=== PATIENT | female | born 1955 | race Caucasian/White ===

== ENCOUNTER 2022-07-13 06:51 | Outpatient (OUT) | payer MEDICARE, SELFPAY ==
[2022-07-13 07:23] LABS: Glucose 110 mg/dL (74-106)
[2022-07-13 07:27] LABS: Estimated Average Glucose 97 mg/dL
== END 2022-07-13 06:52 ==
LOC: LAB 06:55
PROVIDERS: PCP Nurse Practitioner; Visit Provider Nurse Practitioner
DX: R73.9 Hyperglycemia, unspecified (principal)
CPT/HCPCS: 36415; 82947; 83036

== ENCOUNTER 2023-07-22 06:38 | Outpatient (OUT) | payer MEDICARE, SELFPAY ==
[2023-07-22 07:12] LABS: Basophils Absolute Auto 0.1 10^3/uL (0.0-0.1); Basophils Percent Auto 0.6 % (0.2-2.0); Eosinophils Absolute Auto 0.1 10^3/uL (0.0-0.7); Eosinophils Percent Auto 1.8 % (0.9-7.0); Hematocrit 36.8 % (36.0-48.0); Hemoglobin 12.3 g/dL (12.0-16.0); Immature Granulocytes Abs Auto 0.02 10^3/uL (0.00-0.03); Immature Granulocytes Pct Auto 0.3 % (0.0-0.5); Mean Corpuscular HGB Conc 33.4 g/dL (29.9-35.2); Mean Corpuscular Hemoglobin 30.8 pg (26.7-34.0); Mean Corpuscular Volume 92.2 fL (81.0-99.0); Mean Platelet Volume 9.9 fL (9.5-13.5); Monocytes Absolute Auto 0.8 10^3/uL (0.3-0.8); Monocytes Percent Auto 9.6 % (1.7-12.0); Neutrophils Absolute Auto 4.9 10^3/uL (1.4-6.5); Neutrophils Percent Auto 62.7 % (43.0-75.0); Platelet Count 228 10^3/uL (150-450); Red Blood Count 3.99 10^6/uL (4.20-5.40); White Blood Count 7.8 10^3/uL (4.0-11.0)
[2023-07-22 08:20] LABS: Alanine Aminotransferase 27 U/L (14-59); Albumin Globulin Ratio 0.9; Albumin Level 3.3 g/dL (3.4-5.0); Alkaline Phosphatase 67 U/L (46-116); Anion Gap 12.2; Aspartate Amino Transferase 19 U/L (15-37); Bilirubin Total 0.7 mg/dL (0.2-1.0); Calcium 8.7 mg/dL (8.5-10.1); Carbon Dioxide 26.6 mmol/L (21.0-32.0); Chloride 104 mmol/L (98-107); Chol HDL Ratio 2.2; Cholesterol 177 mg/dL (<=200); Estimated GFR (African America >60 (>=60); Estimated GFR (Non-African Ame >60 (>=60); Globulin 3.5 g/dL; Glucose 101 mg/dL (74-106); HDL Cholesterol 79 mg/dL (40-60); Potassium 3.8 mmol/L (3.5-5.1); Sodium 139 mmol/L (136-145); Total Protein 6.8 g/dL (6.4-8.2); Triglycerides 59 mg/dL (<=150); VLDL CHOLESTEROL 11.8 mg/dL
== END 2023-07-22 06:39 | disposition home or self-care (01) ==
LOC: LAB 06:39
PROVIDERS: PCP Nurse Practitioner; Visit Provider Nurse Practitioner
DX: E78.2 Mixed hyperlipidemia (principal); M81.0 Age-related osteoporosis without current pathological fracture; K59.09 Other constipation
CPT/HCPCS: 36415; 80053; 80061; 82306; 85025

== ENCOUNTER 2024-07-31 06:35 | Outpatient (OUT) | payer MEDICARE, SELFPAY ==
--- OUTSIDE RECORDS SUMMARY | 2024-07-31 06:38 | XMS_ITS | CCD ---
Author Organization [facility] Inform ion Partnership [facility] Care Team Providers [facility] Specialist Name Role Phone AICHHOLZ, SKI TOPPER FELICIA Primary Care Unavailable DR YANNICK CARLOS V Consulting Unavailable AICHHOLZ, SKI TOPPER FELICIA Attending Unavailable AICHHOLZ, SKI TOPPER FELICIA Admitting Unavailable AICHHOLZ, SKI TOPPER FELICIA Consulting Unavailable AICHHOLZ, SKI TOPPER FELICIA Primary Care Unavailable AICHHOLZ, SKI TOPPER FELICIA Consulting Unavailable AICHHOLZ, SKI TOPPER FELICIA Attending Unavailable AICHHOLZ, SKI TOPPER FELICIA Admitting Unavailable AICHHOLZ, SKI TOPPER FELICIA Primary Care Unavailable AICHHOLZ, SKI TOPPER FELICIA Consulting Unavailable AICHHOLZ, SKI TOPPER FELICIA Attending Unavailable AICHHOLZ, SKI TOPPER FELICIA Admitting Unavailable Louise Simmons Unavailable AICHHOLZ, FELICIA Referring Unavailable Aichholz SUBSTANCE ABUSE RN, Felicia Unavailable Aichholz SUBSTANCE ABUSE RN, Felicia Unavailable Isaiah Patel MD Primary Care Provider Aichholz SUBSTANCE ABUSE RN, Felicia Unavailable Aichholz SUBSTANCE ABUSE RN, Felicia Unavailable AICHHOLZ, FELICIA Referring Unavailable AICHHOLZ, FELICIA Attending Unavailable AICHHOLZ, FELICIA Attending Unavailable Medications Current Medications Medication Drug Class(es) Dates Sig (Normalized) Sig (Original) alendronic acid 10 mg oral tablet (10 sources) Bisphosphonate Start: 07-07-2023 End: 09-24-2024 take 1 tablet by mouth once daily alendronate (Fosamax) 10 MG tablet Indications: Other osteoporosis without current pathological fracture Take 1 tablet (10 mg) by mouth Daily Take with a full glass of water, stay upright for 1 hour after taking 90 tablet 1 06/26/2024 09/24/2024 Active Alendronate Sodi um 10 MG Oral for 30 Days Active atorvastatin 20 mg oral tablet (10 sources) HMG-CoA Reductase Inhibitor Start: 07-07-2023 End: 09-24-2024 take 1 tablet by mouth at bedtime atorvastatin (Lipitor) 20 MG tablet Indications: Mixed hyperlipidemia (CMS/HCC) Take 1 tablet (20 mg) by mouth at bedtime 90 tablet 1 06/26/2024 09/24/2024 Active Atorvastatin Kendall cium 20 MG Oral for 90 Days Active Calcium (1 source) Phosphate Binder, Calcium Calcium + D3 Active cholecalciferol 0.025 mg oral capsule (6 sources) Vitamin D take 1 capsule by mouth once daily cholecalciferol (Vitamin D-3) 25 MCG (1000 UT) capsule Take 1,000 Units by mouth 1 (one) time each day at the same time Active Fish Oils (7 sources) omega-3 (Fish Oi l) 1200 MG capsule 1 capsule 1 (one) time each day at the same time Active Fish Oil Active Completed/Discontinued Medications Medication Drug Class(es) Dates Sig (Normalized) Sig (Original) meclizine hydrochloride 25 mg oral tablet (2 sources) Antiemetic Start: 06-26-2022 End: 12-20-2023 take 1 tablet by mouth three times daily as needed meclizine (Antivert) 25 MG tablet Take 25 mg by mouth 3 (three) times a day as needed 06/26/2022 12/20/2023 Discontinued Problems Active Problems Problem Classification Problem Date Documented Da te Episodic/Chronic Allergic reactions (6 sources) Atopic dermatitis; Translations: [Intrinsic (allergic) eczema] Onset: 06-21-2023 06-21-2023 Chronic Complications of surgical procedures or medical care (1 source) Unspecified adverse effect of drug or medicament, initial encounter Episodic Conditions associated with dizziness or vertigo (10 sources) Vertigo; Translations: [Dizziness and giddiness] Onset: 01-19-2023 12-20-2023 Episodic Disorders of lipid metabolism (20 sources) Hyperlipidemia, unspecified; Translations: [Mixed hyperlipidemia] Onset: 12-14-2021 Resolved: 12-20-2023 Chronic Osteoporosis (20 sources) Age-related osteoporosis without current pathological fracture; Translations: [Senile osteoporosis] Onset: 12-19-2021 Resolved: 12-20-2023 12-20-2023 Chronic Other gastrointestinal disorders (1 source) Other constipation; Translations: [OTHER CONSTIPATION] Onset: 12-19-2021 Episodic Other gastrointestinal disorders (8 sources) Chronic constipation; Translations: [Other constipation] Onset: 06-21-2023 06-21-2023 Episodic Unclassified (3 sources) CONTACT W/AND (SUSP) EXPOS COVID-19; Translations: [CONTACT W/AND (SUSP) EXPOS COVID-19] Onset: 01-09-2022 Past or Other Problems Problem Classification Problem Date Documented Da te Episodic/Chronic Diseases of mouth; excluding dental (6 sources) Bleeding from mouth; Translations: [Other lesions of oral mucosa] Onset: 02-14-2023 02-14-2023 Episodic Immunizations and screening for infectious disease (8 sources) Needs influenza immunization; Translations: [Encounter for immunization] Onset: 12-20-2023 12-20-2023 Episodic Mood disorders (6 sources) Mood disorders Onset: 06-21-2023 Resolved: 06-26-2024 06-21-2023 Other screening for suspected conditions (not mental disorders or infectious disease) (8 sources) Patient encounter status; Translations: [Encounter for screening mammogram for malignant neoplasm of breast] Onset: 06-21-2023 12-20-2023 Episodic Unclassified (1 source) CONTACT W/AND (SUSP) EXPOS COVID-19; Translations: [CONTACT W/AND (SUSP) EXPOS COVID-19] Onset: 01-06-2022 Unclassified (1 source) Acute cough R05.1 Results Test Name Value Interpretation Reference Range Facil ity BI MAMMOGRAM SCREENING TOMOS YNTHESIS BILATERALon 03-27-2024 BI MAMMOGRAM SCREENING TOMOSYNTHESIS BILATERAL This is a summary report. The complete report is available in the patient's medical record. If you cannot access the medical record, please contact the sending organization for a detailed fax or copy. Examination: BI MAMMOGRAM SCREENING TOMOSYNTHESIS BILATERAL Clinical History: breast cancer screening Technique: Screening digital mammography study of both breasts was performed with 2-D and 3-D tomosynthesis imaging. Study was compared to the prior exam dated 03/01/2023. Findings: There is no evidence of interval dominant spiculated mass, grouped microcalcifications, or skin thickening which would be suggestive of malignancy. Partially visualized axillary lymph nodes bilaterally which appear grossly unremarkable. IMPRESSION: Impression: No specific evidence of malignancy seen in either breast. BIRADS 2 - Benign Findings DENSITY: The breasts are heterogeneously dense, which may obscure small masses. FOLLOW-UP: Routine Screening Mammogram ELECTRONICALLY SIGNED BY: Henrik Hopkins M.D. Normal Not Available DEXA BONE DENSITYon 03-27-19 DEXA BONE DENSITY Examination: DEXA BONE DENSITY Clinical History: osteoporosis Technique: Bone density study was performed. T score values for the lumbar spine, right femoral neck and left femoral neck were obtained. Comparison: None Findings: For the lumbar spine from L1-L4 is -0.3. Value for the right femoral neck is -2.7. Value for the left femoral neck is -2.7. Findings are compatible with osteoporosis with high increased fracture risk. IMPRESSION: Impression: Findings compatible with osteoporosis with high increased fracture risk. ELECTRONICALLY SIGNED BY: Henrik Hopkins M.D. Normal Not Available BI MAMMOGRAM SCREENING TOMOS YNTHESIS BILATERALon 03-01-2023 BI MAMMOGRAM SCREENING TOMOSYNTHESIS BILATERAL This is a summary report. The complete report is available in the patient's medical record. If you cannot access the medical record, please contact the sending organization for a detailed fax or copy. EXAMINATION: BI MAMMOGRAM SCREENING TOMOSYNTHESIS BILATERAL CLINICAL HISTORY:Z12.31 COMPARISON: There are no previous mammograms available for comparison. RESULT: Digital mammography and 3D tomosynthesis of bilateral breasts was performed. Density: Scattered fibroglandular density [2] There is no suspicious mass, asymmetry, architectural distortion, or calcification. IMPRESSION: BIRADS 1 - Negative Follow-up: Routine Screening Mamm Board Certified Radiologists. Accredited by the ACR and FDA. MAMMOGRAPHY IS VERY IMPORTANT TO YOUR HEALTH. THE [place] [employer] SOCIETY GUIDELINES RECOMMEND THAT WOMEN 40 YEARS OF AGE AND OLDER SHOULD HAVE A MAMMOGRAM EVERY YEAR. A REMINDER LETTER WILL BE SENT AT THE APPROPRIATE TIME. THIS FACILITY UTILIZES A REMINDER SYSTEM TO ENSURE ALL PATIENTS RECEIVE REMINDER NOTIFICATIONS AT THE APPROPRIATE TIME BASED ON THE RECOMMENDATIONS OF THIS EXAM. THIS INCLUDES REMINDERS FOR ROUTINE SCREENING MAMMOGRAMS, DIAGNOSTIC MAMMOGRAMS IN WHICH THE PATIENT IS ASKED TO RETURN FOR ADDITIONAL VIEWS, OR OTHER BREAST IMAGING INTERVENTIONS WHEN APPROPRIATE. THE PATIENT WILL BE PLACED IN THE APPROPRIATE REMINDER SYSTEM INCLUDING A REMINDER AT THE APPROPRIATE TIME FOR ANY PENDING ADDITIONAL VIEWS. TRANSCRIBED BY: ELECTRONICALLY SIGNED BY: Prabhu Lentz MD Normal Not Available MG MAMM SCREEN 3D MARIZOL CADon 02-08-2022 MG MAMM SCREEN 3D MARIZOL CAD Patient: SHANNON GOMEZ Exam Date: 02/08/2022 : 1955 Gender:F Ordering : [facility] GAINES [facility] Admission #: [id number] Family : Order #: [id number] CLICK HERE TO VIEW EXAM RADIOLOGY REPORT PROCEDURE: MAMMOGRAM SCREENING 3D BILATERAL CAD COMPARISON: MG MAMM SCREEN MARIZOL W CAD, 07/25/2019. MG MAMM SCREEN 3D MARIZOL CAD, 01/27/2021. INDICATIONS: Screening mammography Calculator Name NCI Breast Cancer Risk Assessment Tool 5 Year Breast Cancer Risk 3.00% Lifetime Breast Cancer Risk 10.60% Personal Breast Cancer No Personal Ovarian Cancer No Treatments None Family Cancers Aunt-maternal with breast cancer at age 50; Mother with colon cancer at age 77; Father with prostate cancer at age 60; Brother with colon cancer at age 54; Sister with breast cancer at age 65. LOCATION: [facility] BREAST COMPOSITION: Heterogeneously dense,which may obscure small masses. FINDINGS: DIAGNOSTIC CATEGORY 1--NEGATIVE. RIGHT BREAST: No significant suspicious finding. LEFT BREAST: No significant suspicious finding. RECOMMENDATIONS: ROUTINE MAMMOGRAM AND CLINICAL EVALUATION IN 12 MONTHS. PLEASE NOTE: A NORMAL MAMMOGRAM DOES NOT EXCLUDE THE POSSIBILITY OF BREAST CANCER. A CLINICALLY SUSPICIOUS PALPABLE LUMP SHOULD BE BIOPSIED. Dictated by: Yannick Carlos MD on 02/08/2022 at 10:19 Approved by: Yannick Carlos MD on 02/08/2022 at 10:21 Normal [facility] XR DEXA BONE DENSITYon 02-08 XR DEXA BONE DENSITY EXAMINATION: XR DEXA BONE DENSITY, 02/08/2022 7:46 AM EST HISTORY: Senile osteoporosis COMPARISON: 2017 TECHNIQUE: Dual-energy X-ray absorptiometry (DEXA) bone density study performed for the axial skeleton. FINDINGS: Bone mineral density of the lumbar spine L1-L4 measures 1.182 g/sq cm. T score 0.0. WHO classification: Normal. Lowest bone mineral density left femoral neck measures 0.675 g/sq cm. T score -2.6. WHO classification: Osteoporosis IMPRESSION: Osteoporosis. High fracture risk Electronically authenticated by: YANNICK CARLOS Date: 2022-02-08 16:15 Normal [facility] Covid-19 PCR (CVDTB)on 12-10 SARS-CoV-2 (COVID-19) RNA SALBADOR+probe Ql (Unsp spec) Not detected Normal NOT DETECTED [facility] Comment on above: Result Comment: This test is not yet approved or cleared by the [place] FDA. When there are no FDA-approved or cleared tests available, and other criteria are met, FDA can make tests available under an emergency access mechanism called an Emergency Use Authorization (EUA). The EUA for this test is supported by the [place] of Health and Human Service's (HHS's) declaration that circumstances exist to justify the emergency use of in vitro diagnostics for the detection and/or diagnosis of the virus that causes COVID-19. This EUA will remain in effect (meaning this test can be used) for the duration of the COVID-19 declaration justifying emergency of IVDs, unless it is terminated or revoked by FDA (after which the test may no longer be used). When diagnostic testing is negative, the possibility of a false negative should be considered in the context of a patient's recent exposures and the presence of clinical signs and symptoms consistent with SARS-CoV-2. Performed By: #### C VDTBH #### [facility] [address] [place] [address] Dr. Johnie Sweet CBC AUTO DIFFon 12-14-2021 BASO # 0.0 103/ul Normal 0.0-0.1 [facility] Comment on above: Performed By: #### C BC #### [facility] [address] [place] [address] Dr. Johnie Sweet Basophils/100 WBC (Bld) 0.4 % Normal 0.2-2.0 [facility] Comment on above: Performed By: #### C BC #### [facility] [address] [place] [address] Dr. Johnie Sweet EO # 0.1 103/ul Normal 0.0-0.7 [facility] Comment on above: Performed By: #### C BC #### [facility] [address] [place] [address] Dr. Johnie Sweet Eosinophils/100 WBC (Bld) 1.2 % Normal 0.9-7.0 [facility] Comment on above: Performed By: #### C BC #### [facility] [address] [place] [address] Dr. Johnie Sweet Erythrocyte distribution width (RBC) [Ratio] 13.2 % Normal 11.0-15.0 [facility] Comment on above: Performed By: #### C BC #### [facility] [address] [place] [address] Dr. Johnie Sweet Hematocrit (Bld) [Volume fraction] 38.9 % Normal 36.0-48.0 [facility] Comment on above: Performed By: #### C BC #### [facility] [address] [place] [address] Dr. Johnie Sweet Hemoglobin (Bld) [Mass/Vol] 12.5 g/dL Normal 12.0-16.0 [facility] Comment on above: Performed By: #### C BC #### [facility] [address] [place] [address] Dr. Johnie Sweet IG # 0.03 10e3/ul Normal 0.00-0.03 [facility] Comment on above: Performed By: #### C BC #### [facility] [address] [place] [address] Dr. Johnie Sweet IG % 0.3 % Normal 0.0-0.5 [facility] Comment on above: Performed By: #### C BC #### [facility] [address] [place] [address] Dr. Johnie Sweet LYMPH # 1.2 103/ul Normal 1.2-3.8 [facility] Comment on above: Performed By: #### C BC #### [facility] [address] [place] [address] Dr. Johnie Sweet Lymphocytes/100 WBC (Bld) 12.5 % Critically low 20.5-60.0 [facility] Comment on above: Performed By: #### C BC #### [facility] [address] [place] [address] Dr. Johine Sweet MANUAL DIFF REQ NO Normal [facility] Comment on above: Performed By: #### C BC #### [facility] [address] [place] [address] Dr. Johnie Sweet MCH (RBC) [Entitic mass] 30.4 pg Normal 26.7-34.0 [facility] Comment on above: Performed By: #### C BC #### [facility] [address] [place] [address] Dr. Johnie Sweet MCHC (RBC) [Mass/Vol] 32.1 g/dL Normal 29.9-35.2 [facility] Comment on above: Performed By: #### C BC #### [facility] [address] [place] [address] Dr. Johnie Sweet MCV (RBC) [Entitic vol] 94.6 fL Normal 81.0-99.0 [facility] Comment on above: Performed By: #### C BC #### [facility] [address] [place] [address] Dr. Johnie Sweet MONO # 0.7 103/ul Normal 0.3-0.8 [facility] Comment on above: Performed By: #### C BC #### [facility] [address] [place] [address] Dr. Johnie Sweet Monocytes/100 WBC (Bld) 6.9 % Normal 1.7-12.0 [facility] Comment on above: Performed By: #### C BC #### [facility] [address] [place] [address] Dr. Johnie Sweet NEUT # 7.4 103/ul Critically high 1.4-6.5 [facility] Comment on above: Performed By: #### C BC #### [facility] [address] [place] [address] Dr. Johnie Sweet Neutrophils/100 WBC (Bld) 78.7 % Critically high 43.0-75.0 [facility] Comment on above: Performed By: #### C BC #### [facility] [address] [place] [address] Dr. Johnie Sweet Platelet mean volume (Bld) [Entitic vol] 10.8 fL Normal 9.5-13.5 [facility] Comment on above: Performed By: #### C BC #### [facility] [address] [address] [address] Johnie Sweet PLT 206 103/ul Normal 150-450 [facility] Comment on above: Performed By: #### C BC #### [facility] [address] [address] [address] Johnie Sweet RBC 4.11 106/ul Critically low 4.20-5.40 [facility] Comment on above: Performed By: #### C BC #### [facility] [address] [place] [address] Dr. Johnie Sweet WBC 9.4 103/ul Normal 4.0-11.0 [facility] Comment on above: Performed By: #### C BC #### [facility] [address] [place] [address] Dr. Johnie Sweet LIPID PROFILEon 12-14-2021 CHOL-HDL RATIO NORM SEE BELOW Normal [facility] Comment on above: Result Comment: 3.3 - 4.4 LOW RISK 4.4 - 7.1 AVERAGE RISK 7.1 - 11.0 MODERATE RISK >11.0 HIGH RISK Performed By: #### C MP, LIPID #### [facility] [address] [place] [address] Dr. Johnie Sweet Cholesterol [Mass/Vol] 185 mg/dL Normal <=200 [facility] Comment on above: Performed By: #### C MP, LIPID #### [facility] [address] [place] [address] Dr. Johnie Sweet Cholesterol in HDL [Mass/Vol] 81 mg/dL Critically high 40-60 [facility] Comment on above: Performed By: #### C MP, LIPID #### [facility] [address] [place] [address] Dr. Johnie Sweet Cholesterol in LDL [Mass/Vol] 93.4 mg/dL Normal [facility] Comment on above: Performed By: #### C MP, LIPID #### [facility] [address] [address] [address] Johnie Sweet Cholesterol.total/C holesterol in HDL [Mass ratio] 2.3 {ratio} Normal [facility] Comment on above: Performed By: #### C MP, LIPID #### [facility] [address] [address] [address] Johnie Sweet HDL NORMAL > or = 60 mg/dl - LO W CARDIOVASCULAR RISK <40 mg/dl - HIGH CARDIOVASCULAR RISK Normal [facility] Comment on above: Performed By: #### C MP, LIPID #### [facility] [address] [address] [address] Johnie Sweet LDL CALC NORMAL SEE BELOW Normal [facility] Comment on above: Result Comment: <100 mg/dl OPTIMAL 100 - 129 mg/dl NEAR OR ABOVE OPTIMAL 130 - 159 mg/dl BORDERLINE HIGH 160 - 189 mg/dl HIGH >190 mg/dl VERY HIGH Performed By: #### C MP, LIPID #### [facility] [address] [address] [address] Johnie Sweet Triglyceride [Mass/Vol] 53 mg/dL Normal <=150 [facility] Comment on above: Performed By: #### C MP, LIPID #### [facility] [address] [place] [address] Dr. Johnie Sweet VLDL CALC 10.6 mg/dL Normal [facility] Comment on above: Performed By: #### C MP, LIPID #### [facility] [address] [place] [address] Dr. Johnie Sweet PROF 14(COMP METB)on 022 Albumin [Mass/Vol] 3.6 g/dL Normal 3.4-5.0 [facility] Comment on above: Performed By: #### C MP, LIPID #### [facility] [address] [place] [address] Dr. Johnie Sweet Albumin/Globulin [Mass ratio] 1.0 {ratio} Normal [facility] Comment on above: Performed By: #### C MP, LIPID #### [facility] [address] [place] [address] Dr. Johnie Sweet ALP [Catalytic activity/Vol] 73 U/L Normal 46-116 [facility] Comment on above: Performed By: #### C MP, LIPID #### [facility] [address] [place] [address] Dr. Johnie Sweet ALT [Catalytic activity/Vol] 17 U/L Normal 14-59 [facility] Comment on above: Performed By: #### C MP, LIPID #### [facility] [address] [place] [address] Dr. Johnie Sweet Anion gap [Moles/Vol] 6.0 mmol/L Normal [facility] Comment on above: Performed By: #### C MP, LIPID #### [facility] [address] [place] [address] Dr. Johnie Sweet AST [Catalytic activity/Vol] 18 U/L Normal 15-37 [facility] Comment on above: Performed By: #### C MP, LIPID #### [facility] [address] [place] [address] Dr. Johnie Sweet Bilirubin [Mass/Vol] 0.6 mg/dL Normal 0.2-1.0 [facility] Comment on above: Performed By: #### C MP, LIPID #### [facility] [address] [place] [address] Dr. Johnie Sweet Calcium [Mass/Vol] 8.6 mg/dL Normal 8.5-10.1 [facility] Comment on above: Performed By: #### C MP, LIPID #### [facility] [address] [place] [address] Dr. Johnie Sweet Chloride [Moles/Vol] 104 mmol/L Normal 98-107 [facility] Comment on above: Performed By: #### C MP, LIPID #### [facility] [address] [place] [address] Dr. Johnie Sweet CO2 [Moles/Vol] 29.7 mmol/L Normal 21.0-32.0 [facility] Comment on above: Performed By: #### C MP, LIPID #### [facility] [address] [place] [address] Dr. Johnie Sweet Creatinine [Mass/Vol] 0.69 mg/dL Normal 0.55-1.02 [facility] Comment on above: Performed By: #### C MP, LIPID #### [facility] [address] [address] [address] Johnie Sweet EGFR-AF DJIBOUTIAN >60 Normal >=60 [facility] Comment on above: Performed By: #### C MP, LIPID #### [facility] [address] [address] [address] Johnie Sweet EGFR-NON AF DJIBOUTIAN >60 Normal >=60 [facility] Comment on above: Performed By: #### C MP, LIPID #### [facility] [address] [address] [address] Johnie Sweet Globulin (S) [Mass/Vol] 3.5 g/dL Normal [facility] Comment on above: Performed By: #### C MP, LIPID #### [facility] [address] [place] [address] Dr. Johnie Sweet Glucose [Mass/Vol] 96 mg/dL Normal 74-106 [facility] Comment on above: Performed By: #### C MP, LIPID #### [facility] [address] [address] [address] Johnie Sweet Potassium [Moles/Vol] 3.7 mmol/L Normal 3.5-5.1 [facility] Comment on above: Performed By: #### C MP, LIPID #### [facility] [address] [address] [address] oJhnie Sweet Protein [Mass/Vol] 7.1 g/dL Normal 6.4-8.2 [facility] Comment on above: Performed By: #### C MP, LIPID #### [facility] [address] [address] [address] Johnie Sweet Sodium [Moles/Vol] 136 mmol/L Normal 136-145 [facility] Comment on above: Performed By: #### C MP, LIPID #### [facility] [address] [address] [address] Johnie Sweet Urea nitrogen [Mass/Vol] 16.0 mg/dL Normal 7.0-18.0 [facility] Comment on above: Performed By: #### C MP, LIPID #### [facility] [address] [place] [address] Dr. Johnie Sweet Urea nitrogen/Creatinine [Mass ratio] 23.2 mg/mg Normal The [facility] Comment on above: Performed By: #### C MP, LIPID #### [facility] [address] [address] [address] Johnie Sweet UA RANDOM W/MICROSCOPICon BACTERIA TRACE Abnormal NONE SEEN [facility] Comment on above: Performed By: #### U AMIC #### [facility] [address] [place] [address] Dr. Johnie Sweet Bilirubin Ql (U) Negative Normal NEGATIVE The [facility] Comment on above: Performed By: #### U AMIC #### [facility] [address] [place] [address] Dr. Johnie Sweet CAST NONE SEEN Normal NONE SEEN [facility] Comment on above: Performed By: #### U AMIC #### [facility] [address] [place] [address] Dr. Johnie Sweet Clarity (U) CLEAR Normal CLEAR The [facility] Comment on above: Performed By: #### U AMIC #### [facility] [address] [place] [address] Dr. Johnie Sweet Color (U) YELLOW Normal YELLOW The [facility] Comment on above: Performed By: #### U AMIC #### [facility] [address] [place] [address] Dr. Johnie Sweet Crystals LM Nom (Urine sed) NONE SEEN Normal NONE SEEN The [facility] Comment on above: Performed By: #### U AMIC #### [facility] [address] [place] [address] Dr. Johnie Sweet Epithelial cells LM Ql (Urine sed) FEW Abnormal NONE SEEN /RARE The [facility] Comment on above: Performed By: #### U AMIC #### [facility] [address] [place] [address] Dr. Johnie Sweet Glucose Ql (U) Negative Normal NEGATIVE The [facility] Comment on above: Performed By: #### U AMIC #### [facility] [address] [address] [address] Johnie Sweet Hemoglobin Ql (U) Negative Normal NEGATIVE The [facility] Comment on above: Performed By: #### U AMIC #### [facility] [address] [address] [address] Johnie Sweet Ketones Ql (U) Negative Normal NEGATIVE The [facility] Comment on above: Performed By: #### U AMIC #### [facility] [address] [address] [address] Johnie Sweet LEUKOCYTES SMALL Abnormal NEGATIVE [facility] Comment on above: Performed By: #### U AMIC #### [facility] [address] [address] [address] Johnie Sweet MUCOUS TRACE Abnormal NONE SEEN The [facility] Comment on above: Performed By: #### U AMIC #### [facility] [address] [address] [address] Johnie Sweet Nitrite Ql (U) Negative Normal NEGATIVE The [facility] Comment on above: Performed By: #### U AMIC #### [facility] [address] [address] [address] Johnie Sweet pH (U) 6.0 [pH] Normal 5-9 [facility] Comment on above: Performed By: #### U AMIC #### [facility] [address] [address] [address] Johnie Sweet RBC 0-2 Normal 0-2 [facility] Comment on above: Performed By: #### U AMIC #### [facility] [address] [address] [address] Johnie Sweet SPEC GRAVITY 1.020 Normal 1.005-<=1.025 The [facility] Comment on above: Performed By: #### U AMIC #### [facility] [address] [address] [address] Johnie Sweet UA PROTEIN Negative Normal NEGATIVE/ TRACE The [facility] Comment on above: Performed By: #### U AMIC #### [facility] [address] [address] [address] Johnie Sweet Urobilinogen Qn (U) 0.2 {Nini'U}/dL Normal 0.2 - 1. 0 The [facility] Comment on above: Performed By: #### U AMIC #### [facility] [address] [address] [address] Johnie Sweet WBC 2-5 Abnormal NONE SEEN The [facility] Comment on above: Performed By: #### U AMIC #### [facility] [address] [address] [address] Johnie Sweet VITAMIN D 25 OHon 12-14-2021 VIT D 25-OH 43.6 ng/mL Normal The [facility] Comment on above: Performed By: #### V ITAD #### [facility] [address] [place] [address] Dr. Johnie Sweet VIT D RANGES SEE BELOW Normal [facility] Comment on above: Result Comment: <20 ng/mL Vit D deficient 20 - <30 ng/mL Vit D insufficient 30 - 100 ng/mL Vit D sufficient >100 ng/mL Potential Toxicity Performed By: #### V ITAD #### [facility] [address] [place] [address] Dr. Johnie Sweet Vital Signs Date Time Vital Sign Value Performing Clinician Facility 06-26-2024 10:040 Body mass index (BMI) [Ratio] 23.46 kg/m2 Felicia Gaines SUBSTANCE ABUSE RN Work Phone: [facility] 06-26-2024 10:040 Body temperature 98.1 [degF] Felicia Gaines SUBSTANCE ABUSE RN Work Phone: [facility] 06-26-2024 10:040 Body weight 63.96 kg Felicia Gaines SUBSTANCE ABUSE RN Work Phone: [facility] 06-26-2024 10:040 Diastolic blood pressure 80 mm[Hg] Felicia Gaines SUBSTANCE ABUSE RN Work Phone: [facility] 06-26-2024 10:040 Heart rate 76 /min Feliciajanki Mcgrawz SUBSTANCE ABUSE RN Work Phone: [facility] 06-26-2024 10:19-0400 Respiratory rate 18 /min Felicia Esperanzaholz SUBSTANCE ABUSE RN Work Phone: [facility] 06-26-2024 10:19-0400 SaO2% (BldA) [Mass fraction] 98 % Felicia Esperanzaholz SUBSTANCE ABUSE RN Work Phone: [facility] 06-26-2024 10:19-0400 Systolic blood pressure 116 mm[Hg] Felicia Esperanzaholz SUBSTANCE ABUSE RN Work Phone: [facility] 12-20-2023 08:32-0500 Body height 165.1 cm Fleicia Esperanzaholz SUBSTANCE ABUSE RN Work Phone: [facility] 12-20-2023 08:32-0500 Body mass index (BMI) [Ratio] 23.8 kg/m2 Felicia Esperanzaholz SUBSTANCE ABUSE RN Work Phone: [facility] 12-20-2023 08:32-0500 Body temperature 98.29 [degF] Felicia Esperanzaholz SUBSTANCE ABUSE RN Work Phone: [facility] 12-20-2023 08:32-0500 Body weight 64.86 kg Felicia Esperanzaholz SUBSTANCE ABUSE RN Work Phone: [facility] 12-20-2023 08:32-0500 Diastolic blood pressure 82 mm[Hg] Felicia Esperanzaholz SUBSTANCE ABUSE RN Work Phone: [facility] 12-20-2023 08:32-0500 Heart rate 64 /min Felicia Esperanzaholz SUBSTANCE ABUSE RN Work Phone: [facility] 12-20-2023 08:32-0500 Respiratory rate 18 /min Felicia Esperanzaholz SUBSTANCE ABUSE RN Work Phone: [facility] 12-20-2023 08:32-0500 SaO2% (BldA) [Mass fraction] 98 % Felicia Steffaniehholz SUBSTANCE ABUSE RN Work Phone: [facility] 12-20-2023 08:32-0500 Systolic blood pressure 124 mm[Hg] Felicia Gaines SUBSTANCE ABUSE RN Work Phone: [facility] 01-19-2022 15:45-0500 Body height 165.1 cm Louise Simmons Other [facility] Other 01-19-2022 15:45-0500 Body mass index (BMI) [Ratio] 23.63 kg/m2 Louise Simmons Other [facility] Other 01-19-2022 15:45-0500 Body temperature 97 [degF] Louise Simmons Other [facility] Other 01-19-2022 15:45-0500 Body weight 64.41 kg Louise Simmons Other [facility] Other 01-19-2022 15:45-0500 Respiratory rate 16 /min Louise Simmons Other [facility] Other 01-19-2022 15:45-0500 SaO2% (BldA) [Mass fraction] 97 % Louise Simmons Other [facility] Other Encounters Encounter Date Encounter Type Care Provider Facility Start: 06-26-2024 End: 06-26-2024 Bamboo flowsheet Felicia Gaines SUBSTANCE ABUSE RN Work Phone: [facility] Start: 06-26-2024 End: 06-26-2024 Bamboo flowsheet Felicia Gaines SUBSTANCE ABUSE RN Work Phone: [facility] Start: 06-26-2024 End: 06-26-2024 Patient encounter procedure Felicia Gaines SUBSTANCE ABUSE RN Work Phone: [facility] Comment on above: Encounter for subseq uent annual wellness visit (AWV) in Medicare patient (Primary Dx); Age-related osteoporosis without current pathological fracture (CMS/HCC); Mixed hyperlipidemia (CMS/HCC); Chronic constipation; Vertigo; Other osteoporosis without current pathological fracture Start: 06-26-2024 End: 06-26-2024 ambulatory FELICIA AICHHOLZ Not Available Start: 03-27-2024 End: 03-27-2024 ambulatory FELICIA AICHHOLZ Not Available Start: 01-10-2024 End: 01-10-2024 Refill Felicia Aichholz SUBSTANCE ABUSE RN Work Phone: [facility] Comment on above: Other osteoporosis w ithout current pathological fracture (CMS/HCC); Mixed hyperlipidemia (CMS/HCC) Start: 12-20-2023 End: 12-20-2023 Office outpatient visit 15 minutes Felicia Mcgrawz SUBSTANCE ABUSE RN Work Phone: [facility] Comment on above: Vertigo (Primary Dx) ; Age-related osteoporosis without current pathological fracture (CMS/HCC); Mixed hyperlipidemia (CMS/HCC); Encounter for screening mammogram for malignant neoplasm of breast; Needs flu shot Start: 12-20-2023 End: 12-20-2023 ambulatory FELICIA AICHHOLZ Not Available Start: 06-21-2023 Patient encounter procedure Felicia Aicmarlaz SUBSTANCE ABUSE RN Work Phone: [facility] Start: 03-01-2023 End: 03-02-2023 ambulatory FELICIA AICHHOLZ Not Available Start: 02-08-2022 End: 02-09-2022 ambulatory SKI TOPPER FELICIA AICHHOLZ Facility:[facility] Start: 01-19-2022 End: 01-19-2022 ambulatory Louise Simmons Other [facility] Other Start: 01-19-2022 Office outpatient ne w 30 minutes Louise Simmons [facility] Start: 01-06-2022 End: 01-06-2022 ambulatory SKI TOPPER FELICIA AICHHOLZ Facility:[facility] Start: 12-14-2021 End: 12-15-2021 ambulatory SKI TOPPER FELICIA AICHHOLZ Facility:[facility] Procedures Date Procedure Procedure Detail Performing Clinician Start: 03-27-2024 Mammography Felicia Aicnatoh miguel SUBSTANCE ABUSE RN Work Phone: Start: 03-01-2023 Mammography Felicia rivera SUBSTANCE ABUSE RN Work Phone: Start: 11-20-2020 Colonoscopy Felicia rivera SUBSTANCE ABUSE RN Work Phone: Plan of Treatment Date Care Activity Detail Author Start: 11-20-2025 Screening for malign ant neoplasm of colon [facility] Start: 06-26-2025 Medicare Annual Well ness (AWV) Medicare Annual Wellness (AWV) [facility] Start: 03-27-2025 Screening for malign ant neoplasm of breast Mammogram [facility] Start: 06-26-2024 End: 06-26-2025 25-hydroxyvitamin D3 [Mass/volume] in Serum or Plasma Vitamin D 25 hydroxy Lab Routine Age-related osteoporosis without current pathological fracture (CMS/HCC) Expected: 06/26/2024 (Approximate), Expires: 06/26/2025 [facility] Comment on above: Expected: 06/26/2024 (Approximate), Expires: 06/26/2025 Start: 06-26-2024 End: 06-26-2025 CBC W Auto Differential panel - Blood CBC and differential Lab Routine Chronic constipation Vertigo Expected: 06/26/2024 (Approximate), Expires: 06/26/2025 [facility] Work Phone: Comment on above: Expected: 06/26/2024 (Approximate), Expires: 06/26/2025 Start: 06-26-2024 End: 06-26-2025 Comprehensive metabolic 2000 panel - Serum or Plasma Comprehensive metabolic panel Lab Routine Mixed hyperlipidemia (CMS/HCC) Expected: 06/26/2024 (Approximate), Expires: 06/26/2025 [facility] Comment on above: Expected: 06/26/2024 (Approximate), Expires: 06/26/2025 Start: 06-26-2024 End: 06-26-2025 Lipid 1996 panel - Serum or Plasma Lipid panel Lab Routine Mixed hyperlipidemia (CMS/HCC) Expected: 06/26/2024 (Approximate), Expires: 06/26/2025 [facility] Comment on above: Expected: 06/26/2024 (Approximate), Expires: 06/26/2025 Start: 06-26-2024 End: 06-26-2024 Patient encounter procedure [facility] Comment on above: Age-related osteopor osis without current pathological fracture (CMS/HCC) (Primary Dx); Encounter for subsequent annual wellness visit (AWV) in Medicare patient; Mixed hyperlipidemia (CMS/HCC); Chronic constipation; Vertigo Start: 06-20-2024 Medicare Annual Well ness (AWV) Medicare Annual Wellness (AWV) [facility] Start: 03-01-2024 End: 02-18-2025 DBT Breast - bilateral screening Bilateral screening mammogram with tomosynthesis Imaging Routine Encounter for screening mammogram for malignant neoplasm of breast Expected: 03/01/2024 (Approximate), Expires: 02/18/2025 [facility] Comment on above: Expected: 03/01/2024 (Approximate), Expires: 02/18/2025 Start: 03-01-2024 End: 12-19-2024 DXA Skeletal system Views for bone density DEXA bone density Imaging Routine Age-related osteoporosis without current pathological fracture (CMS/HCC) Expected: 03/01/2024, Expires: 12/19/2024 [facility] Work Phone: Comment on above: Expected: 03/01/2024 , Expires: 12/19/2024 Start: 03-01-2024 Screening for malign ant neoplasm of breast Mammogram [facility] Start: 1955 Screening for malign ant neoplasm of colon [facility] Immunizations Immunization Date Immunization Notes Care Provider Gely lilly 12-20-2023 Seasonal trivalent influenza vaccine, adjuvanted, preservative free Felicia Aichholz SUBSTANCE ABUSE RN Work Phone: [facility] 12-15-2022 Influenza, High-dose Seasonal, Quadrivalent, Preservative Free Felicia Aichholz SUBSTANCE ABUSE RN Work Phone: [facility] 06-17-2022 zoster vaccine recombinant Felicia Aichholz SUBSTANCE ABUSE RN Work Phone: [facility] 06-07-2022 pneumococcal conjuga te vaccine, 13 valent Felicia Aichholz SUBSTANCE ABUSE RN Work Phone: [facility] 03-18-2022 Pneumococcal Conjuga te PCV 20 Felicia Aichholz SUBSTANCE ABUSE RN Work Phone: [facility] 03-18-2022 zoster vaccine recombinant Felicia Aichholz SUBSTANCE ABUSE RN Work Phone: [facility] 12-08-2021 influenza, high dose seasonal, preservative-free Felicia Aichholz SUBSTANCE ABUSE RN Work Phone: [facility] 12-03-2021 SARS-COV-2 (COVID-19 ) vaccine, mRNA, spike protein, LNP, bivalent, preservative free, 30 mcg/0.3 mL dose, lebron-sucrose formulation Felicia Aichholz SUBSTANCE ABUSE RN Work Phone: [facility] 12-22-2020 Nadiya SARS-CoV-2 Felicia Aich raisa SUBSTANCE ABUSE RN Work Phone: [facility] 04-16-2020 Nadiya SARS-CoV-2 Felicia Aich raisa SUBSTANCE ABUSE RN Work Phone: [facility] 05-05-2012 tetanus toxoid, redu prachi diphtheria toxoid, and acellular pertussis vaccine, adsorbed Felicia Aichholz SUBSTANCE ABUSE RN Work Phone: [facility] 02-04-2012 seasonal influenza, intradermal, preservative free Felicia Aichholz SUBSTANCE ABUSE RN Work Phone: [facility] Payers Date Payer Category Payer Private Health Insurance [employer] [id number] 2020 Medicare MEDICARE [id number] 1959 Medicare [id number] 1959 Private Health Insurance CLI [id number] 1955 Unknown [id number] 1955 Unknown [id number] 1955 Unknown [id number] 1955 Unknown [id number] 1955 Unknown [id number] 1955 Unknown [id number] 1955 Unknown [id number] 1955 Unknown [id number] Unknown [id number] Social History Date Type Detail Facility Start: 06-21-2023 End: 06-26-2024 Sex Assigned At [facility] Other Start: 01-19-2023 [facility] Start: 01-19-2023 Tobacco use and exposure Smokeless tobacco non-user [facility] Start: 12-20-2023 End: 06-26-2024 Alcoholic beverage intake Lifetime non-drinker (finding) [facility] Start: 06-21-2023 End: 06-26-2024 History of Social function [facility] Within the last year , have you been afraid of your partner or ex-partner? No [facility] Are you now , , , , never or living with a partner? [facility] How often to you hav e a drink containing alcohol? Never [facility] How many standard drinks containing alcohol do you have on a typical day? Patient does not drink [facility] Do you feel stress - tense, restless, nervous, or anxious, or unable to sleep at night because your mind is troubled all the time - these days [OSQ] Not at all [facility] (I/We) worried wheth er (my/our) food would run out before (I/we) got money to buy more. Never true [facility] Start: 1955 Sex assigned at Not on file [facility] Functional Status Date Assessment Result Facility 06-26-2024 Patient Health Quest ionnaire 2 item (PHQ-2) [Reported] [facility] History of Present illness Narrative 06-26-2024 Felicia Gaines, TIRSO - 06/26/2024 10:30 AM Velma Gaines NP - 06/26/2024 6:26 AM Velma Gaines NP - 06/26/2024 6:24 AM Velma Gaines NP - 06/26/2024 6:24 AM EDT Note Date & Type Note Facility 06-26-2024 History of Presen t illness Narrative Images from the original note were not included. Shannon Gomez is a 68 y.o. female presents with chief complaint of Medicare Annual Wellness Visit Initial HPI: Diet:variety Activity: no Mental Health Concerns: no Falls in the last year:no Still driving: yes Do you pay your bills: yes Any hearing problems:no Any Vision problems: no , just had cataract surgery Any Hospitalizations in the last year: no Specialist: eye doctor HCPOA/Living Will: yes Concerns: no SUBJECTIVE: MEDICATIONS: Current Outpatient Medications Medication Instructions alendronate (FOSAMAX) 10 mg, Oral, Daily, Take with a full glass of water, stay upright for 1 hour after taking atorvastatin (LIPITOR) 20 mg, Oral, Nightly cholecalciferol (VITAMIN D-3) 1,000 Units, Every 24 hours omega-3 (Fish Oil) 1200 MG capsule 1 capsule, Every 24 hours ALLERGIES: No Known Allergies REVIEW OF SYMPTOMS: Review of Systems Constitutional: Negative for appetite change, chills and fever. HENT: Negative for congestion, ear pain and sore throat. Eyes: Negative for pain, discharge, redness and visual disturbance. Respiratory: Negative for cough, shortness of breath and wheezing. Cardiovascular: Negative for chest pain, palpitations and leg swelling. Gastrointestinal: Negative for abdominal pain, blood in stool, constipation, diarrhea, nausea and vomiting. Genitourinary: Negative for difficulty urinating, dysuria and frequency. Musculoskeletal: Negative for arthralgias, back pain, joint swelling and myalgias. Skin: Negative for rash and wound. Neurological: Negative for dizziness, tremors, seizures, syncope and headaches. Psychiatric/Behavioral: Negative for behavioral problems, self-injury and suicidal ideas. The patient is not nervous/anxious. Hematological: Does not bruise/bleed easily. Endocrine: Negative for polydipsia, polyphagia and polyuria. Allergic/Immunologic: Negative for environmental allergies and food allergies. PAST MEDICAL HISTORY Past Medical History: Diagnosis Date Chronic constipation Diverticulosis Hyperlipemia (CMS/HCC) Lesion of hard palate Osteoporosis (CMS/HCC) Torus mandibularis Unspecified lesions of oral mucosa Vertigo 01/19/2023 No past surgical history on file. family history is not on file. OBJECTIVE: Visit Vitals BP 116/80 (BP Location: Left arm, Patient Position: Sitting, BP Cuff Size: Adult long) Pulse 76 Temp 98.1 F (Temporal) Resp 18 Wt 141 lb SpO2 98% BMI 23.46 kg/m Smoking Status Never BSA 1.71 m Physical Exam Vitals and nursing note reviewed. Constitutional: General: She is not in acute distress. Appearance: Normal appearance. HENT: Head: Normocephalic and atraumatic. Right Ear: External ear normal. Left Ear: External ear normal. Nose: Nose normal. Mouth/Throat: Mouth: Mucous membranes are moist. Eyes: Extraocular Movements: Extraocular movements intact. Conjunctiva/sclera: Conjunctivae normal. Neck: Vascular: No carotid bruit. Cardiovascular: Rate and Rhythm: Normal rate and regular rhythm. Pulses: Normal pulses. Heart sounds: Normal heart sounds. No murmur heard. Pulmonary: Effort: Pulmonary effort is normal. Breath sounds: Normal breath sounds. No wheezing or rhonchi. Abdominal: General: Bowel sounds are normal. There is no distension. Palpations: Abdomen is soft. There is no mass. Tenderness: There is no abdominal tenderness. Musculoskeletal: General: Normal range of motion. Cervical back: Normal range of motion and neck supple. Right lower leg: No edema. Left lower leg: No edema. Skin: General: Skin is warm and dry. Capillary Refill: Capillary refill takes 2 to 3 seconds. Findings: No rash. Neurological: General: No focal deficit present. Mental Status: She is alert and oriented to person, place, and time. Psychiatric: Mood and Affect: Mood normal. Behavior: Behavior normal. Thought Content: Thought content normal. Judgment: Judgment normal. ASSESSMENT AND PLAN: No follow-ups on file. Problem List Items Addressed This Visit Vertigo Slow position changes, d/t intmettent nature of symptoms will monitor Notify the office if worsening freq or intensity or LAFLEUR Relevant Orders CBC and differential Mixed hyperlipidemia (CMS/HCC) On statin therapy Check labs yearly and prn dose changes Relevant Medications atorvastatin (Lipitor) 20 MG tablet Other Relevant Orders Lipid panel Comprehensive metabolic panel Chronic constipation Adequate water intake, also foods high in fiber, and physical activity Relevant Orders CBC and differential Encounter for subsequent annual wellness visit (AWV) in Medicare patient Reviewed Ht/Wt/BMI Recommend eye exam yearly Recommend dental exams twice a year Balance work/leisure activities Exercises is recommended most days of the week (appropriate as chronic conditions allow) Follow up yearly and prn Age-related osteoporosis without current pathological fracture (CMS/HCC) - Primary Current med: fosamax daily Most recent DEXA: 03/28/24: left femur -2.7 Recommend daily weight bearing exercise,as well as foods rich in calcium Relevant Orders Vitamin D 25 hydroxy Other Visit Diagnoses Other osteoporosis without current pathological fracture Relevant Medications alendronate (Fosamax) 10 MG tablet Associated Problem(s): Chronic constipation Adequate water intake, also foods high in fiber, and physical activity Associated Problem(s): Mixed hyperlipidemia (CMS/HCC) On statin therapy Check labs yearly and prn dose changes Associated Problem(s): Encounter for subsequent annual wellness visit (AWV) in Medicare patient Reviewed Ht/Wt/BMI Recommend eye exam yearly Recommend dental exams twice a year Balance work/leisure activities Exercises is recommended most days of the week (appropriate as chronic conditions allow) Follow up yearly and prn Associated Problem(s): Age-related osteoporosis without current pathological fracture (CMS/HCC) Current med: fosamax daily Most recent DEXA: 03/28/24: left femur -2.7 Recommend daily weight bearing exercise,as well as foods rich in calcium Associated Problem(s): Vertigo Slow position changes, d/t intmettent nature of symptoms will monitor Notify the office if worsening freq or intensity or LAFLEUR documented in this encounter [facility] Instructions 06-26-2024 Patient Instructions Note Date & Type Note Facility 06-26-2024 Instructions Felicia Gaines NP - 06/26/2024 10:30 AM EDT Labs fasting 8 hours Colonoscopy 11/2025 documented in this encounter [facility] History of Present illness Narrative 12-20-2023 Felicia Gaines NP - 12/20/2023 9:17 AM Mira Gaines NP - 12/20/2023 9:00 AM Mira Gaines NP - 12/20/2023 6:31 AM Mira Gaines NP - 12/20/2023 6:27 AM EST Note Date & Type Note Facility 12-20-2023 History of Presen t illness Narrative Associated Problem(s): Vertigo Slow position changes, d/t intmettent nature of symptoms will monitor Notify the office if worsening freq or intensity or LAFLEUR Images from the original note were not included. Shannon Gomez is a 68 y.o. female presents with chief complaint of No chief complaint on file. HPI: Here for a recheck: Dizziness: usually in the morning, room is spinning, most notable in morning when get out of bed. Less than 30 seconds or less, no LAFLEUR or blurry or double vision. No chest pain or diaphoresis. Once to twice a week. Has had ER visit for this in the past, associated with ear infection. Did see ENT for this, no acute abnormals. Saw Dr Quezada in the past. CT scan in the past, no acute pathology, no specialist evaluation. No LAFLEUR, weaknesss, or stroke type symptoms SUBJECTIVE: MEDICATIONS: Current Outpatient Medications Medication Instructions alendronate (FOSAMAX) 10 mg, Oral, Daily, Take with a full glass of water, stay upright for 1 hour after taking atorvastatin (LIPITOR) 20 mg, Oral, Nightly cholecalciferol (VITAMIN D-3) 1,000 Units, Every 24 hours omega-3 (Fish Oil) 1200 MG capsule 1 capsule, Every 24 hours ALLERGIES: No Known Allergies REVIEW OF SYMPTOMS: Review of Systems Constitutional: Negative for appetite change, chills and fever. HENT: Negative for congestion, ear pain and sore throat. Eyes: Negative for pain, discharge, redness and visual disturbance. Respiratory: Negative for cough, shortness of breath and wheezing. Cardiovascular: Negative for chest pain, palpitations and leg swelling. Gastrointestinal: Negative for abdominal pain, blood in stool, constipation, diarrhea, nausea and vomiting. Genitourinary: Negative for difficulty urinating, dysuria and frequency. Musculoskeletal: Negative for arthralgias, back pain, joint swelling and myalgias. Skin: Negative for rash and wound. Neurological: Positive for dizziness. Negative for tremors, seizures, syncope and headaches. Psychiatric/Behavioral: Negative for behavioral problems, self-injury and suicidal ideas. The patient is not nervous/anxious. Hematological: Does not bruise/bleed easily. Endocrine: Negative for polydipsia, polyphagia and polyuria. Allergic/Immunologic: Negative for environmental allergies and food allergies. PAST MEDICAL HISTORY Past Medical History: Diagnosis Date Chronic constipation Diverticulosis Hyperlipemia (CMS/HCC) Lesion of hard palate Osteoporosis (CMS/HCC) Torus mandibularis Unspecified lesions of oral mucosa Vertigo 01/19/2023 History reviewed. No pertinent surgical history. family history is not on file. OBJECTIVE: Visit Vitals BP 124/82 (BP Location: Left arm, Patient Position: Sitting, BP Cuff Size: Adult long) Pulse 64 Temp 98.3 F (Temporal) Resp 18 Ht 5' 5 Wt 143 lb SpO2 98% BMI 23.80 kg/m Smoking Status Never BSA 1.73 m Physical Exam Vitals and nursing note reviewed. Constitutional: General: She is not in acute distress. Appearance: Normal appearance. HENT: Head: Normocephalic and atraumatic. Right Ear: Tympanic membrane, ear canal and external ear normal. Left Ear: Tympanic membrane, ear canal and external ear normal. Nose: Nose normal. No congestion or rhinorrhea. Mouth/Throat: Mouth: Mucous membranes are moist. Pharynx: Posterior oropharyngeal erythema present. Eyes: General: No scleral icterus. Extraocular Movements: Extraocular movements intact. Conjunctiva/sclera: Conjunctivae normal. Pupils: Pupils are equal, round, and reactive to light. Neck: Vascular: No carotid bruit. Cardiovascular: Rate and Rhythm: Normal rate and regular rhythm. Pulses: Normal pulses. Heart sounds: Normal heart sounds. Pulmonary: Effort: Pulmonary effort is normal. Breath sounds: Normal breath sounds. No wheezing. Abdominal: General: Bowel sounds are normal. There is no distension. Palpations: Abdomen is soft. There is no mass. Tenderness: There is no abdominal tenderness. Musculoskeletal: General: Normal range of motion. Cervical back: Normal range of motion and neck supple. Right lower leg: No edema. Left lower leg: No edema. Lymphadenopathy: Cervical: No cervical adenopathy. Skin: General: Skin is warm and dry. Capillary Refill: Capillary refill takes 2 to 3 seconds. Findings: No rash. Neurological: General: No focal deficit present. Mental Status: She is alert and oriented to person, place, and time. Cranial Nerves: No cranial nerve deficit. Comments: Neg romberg Psychiatric: Mood and Affect: Mood normal. Behavior: Behavior normal. Thought Content: Thought content normal. Judgment: Judgment normal. ASSESSMENT AND PLAN: Follow up in about 6 months (around 06/18/2024). Problem List Items Addressed This Visit Vertigo - Primary Slow position changes, d/t intmettent nature of symptoms will monitor Notify the office if worsening freq or intensity or LAFLEUR Mixed hyperlipidemia (CMS/HCC) Continue statin therapy, and labs are UTD Encounter for screening mammogram for malignant neoplasm of breast Relevant Orders Bilateral screening mammogram Age-related osteoporosis without current pathological fracture (CMS/HCC) Continue with fosamax Check DEXA scan with mammogram in Feb 2024 Relevant Orders DEXA bone density Needs flu shot Relevant Orders Flu vaccine, trivalent, adjuvanted, PF ([id number]) (Fluad trivalent single dose syringe) (Completed) Associated Problem(s): Mixed hyperlipidemia (CMS/HCC) Continue statin therapy, and labs are UTD Associated Problem(s): Age-related osteoporosis without current pathological fracture (CMS/HCC) Continue with fosamax Check DEXA scan with mammogram in Feb 2024 documented in this encounter [facility] Evaluation note 01-19-2022 Note Date & Type Note Facility 01-19-2022 Evaluation note Encounter Date Diagnosis Assessment Notes 13 Jan, 2022 Acute cough (ICD-10 - R05.1) No testing performed today. Daughter tested positive for Influenza A. Advised that patient likely had Influenza A in beginning, then passed along to daughter. No acute lung process heard today on exam. May continue supportive care. Follow up with PCP if no improvement of symptoms. Patient verbalizes understanding Jan, Medication side effect (ICD-10 - T88.7XXA) Advised patient that diarrhea is common side effect of Cefdinir. Encouraged to increase fluids. Symptoms should resolve in a few days, if no improvement follow up with PCP. Patient verbalizes understanding [facility] Other Evaluation note Note Date & Type Note Facility Evaluation note Diagnosis Vertigo- Primary Dizziness and giddiness Encounter for subsequent annual wellness visit (AWV) in Medicare patient- Primary Encounter for screening mammogram for malignant neoplasm of breast Mixed hyperlipidemia (CMS/HCC) Mixed hyperlipidemia Age-related osteoporosis without current pathological fracture (CMS/HCC) Chronic constipation Unspecified constipation Intrinsic eczema Vertigo- Primary Dizziness and giddiness Age-related osteoporosis without current pathological fracture (CMS/HCC) Mixed hyperlipidemia (CMS/HCC) Mixed hyperlipidemia Encounter for screening mammogram for malignant neoplasm of breast Needs flu shot Need for prophylactic vaccination and inoculation against influenza documented in this encounter [facility] Evaluation note Note Date & Type Note Facility Evaluation note Diagnosis Vertigo- Primary Dizziness and giddiness Encounter for subsequent annual wellness visit (AWV) in Medicare patient- Primary Encounter for screening mammogram for malignant neoplasm of breast Mixed hyperlipidemia (CMS/HCC) Mixed hyperlipidemia Age-related osteoporosis without current pathological fracture (CMS/HCC) Chronic constipation Unspecified constipation Intrinsic eczema Vertigo- Primary Dizziness and giddiness Age-related osteoporosis without current pathological fracture (CMS/HCC) Mixed hyperlipidemia (CMS/HCC) Mixed hyperlipidemia Encounter for screening mammogram for malignant neoplasm of breast Needs flu shot Need for prophylactic vaccination and inoculation against influenza Other osteoporosis without current pathological fracture (CMS/HCC) Mixed hyperlipidemia (CMS/HCC) Mixed hyperlipidemia documented in this encounter [facility] Evaluation note Note Date & Type Note Facility Evaluation note Diagnosis Vertigo- Primary Dizziness and giddiness Encounter for subsequent annual wellness visit (AWV) in Medicare patient- Primary Encounter for screening mammogram for malignant neoplasm of breast Mixed hyperlipidemia (CMS/HCC) Mixed hyperlipidemia Age-related osteoporosis without current pathological fracture (CMS/HCC) Chronic constipation Unspecified constipation Intrinsic eczema Vertigo- Primary Dizziness and giddiness Age-related osteoporosis without current pathological fracture (CMS/HCC) Mixed hyperlipidemia (CMS/HCC) Mixed hyperlipidemia Encounter for screening mammogram for malignant neoplasm of breast Needs flu shot Need for prophylactic vaccination and inoculation against influenza Encounter for subsequent annual wellness visit (AWV) in Medicare patient- Primary Age-related osteoporosis without current pathological fracture (CMS/HCC) Mixed hyperlipidemia (CMS/HCC) Mixed hyperlipidemia Chronic constipation Unspecified constipation Vertigo Dizziness and giddiness Other osteoporosis without current pathological fracture documented in this encounter [facility] History general Narrative - Reported Note Date & Type Note Facility History general Narrative - Reported Type Medical History osteoporosis Medical History high cholesterol Surgical History tubal ligation [facility] Other Summary Purpose Family History No Family History Records FoundNo Family History Records FoundNo Family History Records Found Advance Directives No Advanced Directives Records FoundNo Advanced Directives Records FoundNo Advanced Directives Records Found Additional Source Comments INFORMATION SOURCE (unrecogn ized section and content) DATE CREATED AUTHOR 02/08/2022 [facility] DATE CREATED AUTHOR AUTHOR'S ORGANIZ ATION 03/06/2023 [facility] EPIC DATE CREATED AUTHOR AUTHOR'S ORGANIZ ATION 06/27/2024 [facility] EPIC REASON FOR VISIT (unrecogniz ed section and content) Reason Comments Medicare Annual Wellness Visit Initial Care Teams (unrecognized sec tion and content) Service Center Specialist Relationship Specialty Start Date End Date Isaiah Patel MD [address] [place] [phone] PCP - General Family Medicine 12/20/23 Felicia Gaines NP [address] [place] [phone] Nurse Practitioner Family Medicine 06/21/23 Felicia Gaines NP [address] [place] [phone] Nurse Practitioner Family Medicine 12/13/22 Felicia Gaines NP [address] [place] [phone] Nurse Practitioner Family Medicine 12/20/23 [facility] Specialist Relationship Specialty Start Date End Date Isaiah Patel MD [address] [place] [phone] PCP - General Family Medicine 12/20/23 Felicia Gaines NP [address] [place] [phone] Nurse Practitioner Family Medicine 06/21/23 Felicia Gaines NP [address] [place] [phone] Nurse Practitioner Family Medicine 12/13/22 Felicia Gaines NP [address] [place] [phone] Nurse Practitioner Family Medicine 12/20/23 Service Center Specialist Relationship Specialty Start Date End Date Isaiah Patel MD [address] [place] [phone] PCP - General Family Medicine 12/20/23 Felicia Gaines NP [address] [place] [phone] PCP - ACO Reach 03/16/24 Felicia Gaines NP [address] [place] [phone] Nurse Practitioner Family Medicine 06/21/23 Felicia Gaines NP [address] [place] [phone] Nurse Practitioner Family Medicine 12/13/22 Felicia Gaines NP [address] [place] [phone] Nurse Practitioner Family Medicine 12/20/23 [facility] Specialist Relationship Specialty Start Date End Date Isaiah Patel MD [address] [place] [phone] PCP - General Family Medicine 12/20/23 Felicia Gaines NP [address] [place] [phone] PCP - ACO Reach 03/16/24 Felicia Gaines NP [address] [place] [phone] Nurse Practitioner Family Medicine 06/21/23 Felicia Gaines NP [address] [place] [phone] Nurse Practitioner Family Medicine 12/13/22 Felicia Gaines NP [address] [place] [phone] Nurse Practitioner Family Medicine 12/20/23 FOR RECORDS PERTAINING TO PATIENTS WHO ARE OR HAVE BEEN ENROLLED IN A CHEMICAL DEPENDENCY/SUBSTANCEABUSE PROGRAM, SOME INFORMATION MAY BE OMITTED. This clinical summary was aggregated from multiple sources. Caution should be exercised in using it in the provision of clinical care. This summary normalizes information from multiple sources, and as a consequence, information in this document may materially change the coding, format and clinical context of patient data. In addition, data may be omitted in some cases. CLINICAL DECISIONS SHOULD BE BASED ON THE PRIMARY CLINICAL RECORDS. [facility] [employer] [facility]. provides no warranty or guarantee of the accuracy or completeness of information in this document.
[2024-07-31 07:06] LABS: Basophils Percent Auto 0.6 % (0.2-2.0); Eosinophils Absolute Auto 0.1 10^3/uL (0.0-0.7); Hematocrit 39.9 % (36.0-48.0); Hemoglobin 13.5 g/dL (12.0-16.0); Immature Granulocytes Abs Auto 0.01 10^3/uL (0.00-0.03); Immature Granulocytes Pct Auto 0.2 % (0.0-0.5); Lymphocytes Absolute Auto 1.7 10^3/uL (1.2-3.8); Mean Corpuscular HGB Conc 33.8 g/dL (29.9-35.2); Mean Corpuscular Hemoglobin 31.7 pg (26.7-34.0); Mean Corpuscular Volume 93.7 fL (81.0-99.0); Mean Platelet Volume 9.7 fL (9.5-13.5); Monocytes Absolute Auto 0.7 10^3/uL (0.3-0.8); Monocytes Percent Auto 9.9 % (1.7-12.0); Neutrophils Percent Auto 61.3 % (43.0-75.0); Platelet Count 199 10^3/uL (150-450); Red Blood Count 4.26 10^6/uL (4.20-5.40); Red Cell Distribution Width 13.2 % (11.0-15.0); White Blood Count 6.6 10^3/uL (4.0-11.0)
[2024-07-31 07:28] LABS: Alanine Aminotransferase 24 U/L (14-59); Albumin Globulin Ratio 0.9; Albumin Level 3.5 g/dL (3.4-5.0); Alkaline Phosphatase 71 U/L (46-116); Anion Gap 12.1; Aspartate Amino Transferase 21 U/L (15-37); BUN Creatinine Ratio 22.1; Bilirubin Total 0.7 mg/dL (0.2-1.0); Calcium 9.2 mg/dL (8.5-10.1); Carbon Dioxide 28.8 mmol/L (21.0-32.0); Chloride 107 mmol/L (98-107); Cholesterol 179 mg/dL (<=200); Estimated GFR (African America >60 (>=60 mL/min/1.73m^2); Estimated GFR (Non-African Ame >60 (>=60 mL/min/1.73m^2); Globulin 3.7 g/dL; Glucose 98 mg/dL (74-106); HDL Cholesterol 91 mg/dL (40-60); Potassium 3.9 mmol/L (3.5-5.1); Sodium 144 mmol/L (136-145); Total Protein 7.2 g/dL (6.4-8.2); Triglycerides 43 mg/dL (<=150); VLDL CHOLESTEROL 8.6 mg/dL
== END 2024-07-31 06:36 | disposition home or self-care (01) ==
LOC: LAB 06:37
PROVIDERS: PCP Nurse Practitioner; Visit Provider Nurse Practitioner
DX: K59.09 Other constipation (principal); M81.0 Age-related osteoporosis without current pathological fracture; R42 Dizziness and giddiness; E78.2 Mixed hyperlipidemia
CPT/HCPCS: 36415; 80053; 80061; 82306